=== PATIENT | female | born 1990 | race Hispanic/Latino ===

== ENCOUNTER 2022-07-15 16:37 | Outpatient (CLI) | payer OTHER, SELFPAY | END 2022-07-15 16:38 | disposition home or self-care (01) | LOC: RAD 16:37 | PROVIDERS: ATTEND Family Medicine | DX: R76.12 Nonspecific reaction to cell mediated immunity measurement of gamma interferon antigen response without active tuberculosis (principal) | CPT/HCPCS: 71045 ==